=== PATIENT | male | born 1950 | race Caucasian/White ===

== ENCOUNTER 2016-09-18 10:43 | Day surgery (SDC) | END 2016-09-18 15:58 | disposition home or self-care (01) | DX: I12.0 Hypertensive chronic kidney disease with stage 5 chronic kidney disease or end stage renal disease (principal); N18.6 End stage renal disease ==

== ENCOUNTER 2016-12-23 08:48 | Day surgery (SDC) | payer OTHER ==
[~2016-12-23] VITALS: Ht 160 cm; Wt 60.3 kg
[2016-12-23] VITALS (12 sets, daily range): BP systolic 100–151; BP diastolic 47–70; PULSE 62–72; RESP 12–19; Ht 160 cm; Wt 60.3 kg
[~2016-12-23 08:48] MED LIST: AMLO-145 PO; ASPI81TA3 PO; CEFAZOLIN 2 GM/50 ML (PMX) 50 ML IVPB ONE; FURO40TA4 PO; HYDR-3672 PO; INSULIN; METO25TA7 PO; NPH,100V10 SQ; PROPOFOL 1000 MG INJ ONE
[2016-12-23] MEDS ORDERED: FER325 PO (09:45)
[2016-12-23] MEDS ORDERED: FURO40TA4 PO (09:46)
[2016-12-23] MEDS ORDERED: ATOR10TA65 PO (09:47)
[2016-12-23] MEDS ORDERED: CALC667C PO (09:47)
[2016-12-23] MEDS ORDERED: NPH,100V SQ (09:52)
[2016-12-23 10:04] LABS: ADD SCAN DIFF NO
[2016-12-23 10:10] LABS: BASOPHIL # 0.1 10^3/ul (0.0-0.1); BASOPHILS % 0.7 % (0.0-2.0); EOSINOPHILS # 0.1 10^3/ul (0.0-0.5); EOSINOPHILS % 1.2 % (0.0-7.0); HEMATOCRIT 29.8 % (42.0-52.0); HEMOGLOBIN 9.8 g/dl (14.0-18.0); LYMPHOCYTES # 1.8 10^3/ul (0.8-2.9); LYMPHOCYTES % 19.4 % (15.0-51.0); MEAN CORPUSCULAR HEMOGLOBIN 29.7 pg (29.0-33.0); MEAN CORPUSCULAR HGB CONC 32.9 g/dl (32.0-37.0); MEAN CORPUSCULAR VOLUME 90.3 fl (82.0-101.0); MEAN PLATELET VOLUME 9.9 fl (7.4-10.4); MONOCYTE # 0.8 10^3/ul (0.3-0.9); MONOCYTES % 8.9 % (0.0-11.0); NEUTROPHIL # 6.4 10^3/ul (1.6-7.5); NEUTROPHILS % 69.7 % (39.0-77.0); PLATELET COUNT 244 10^3/UL (140-415); RED CELL DISTRIBUTION WIDTH 13.6 % (11.5-14.5); WHITE BLOOD COUNT 9.2 10^3/ul (4.8-10.8)
[2016-12-23] MEDS ORDERED: GELATIN SIZE 100 SPONGE ONE (10:15)
[2016-12-23] MEDS ORDERED: LIDOCAINE 1% (STERILE-PAK) 30 ML INJ ONE (10:15)
[2016-12-23] MEDS ORDERED: THROMBIN 5000 UNIT VIAL ONE (10:16)
[2016-12-23] MEDS ORDERED: HEPARIN 1000 UNITS/ML 10 ML INJ ONE (10:16)
[2016-12-23 10:36] LABS: INR 0.99; PARTIAL THROMBOPLASTIN TIME 26.5 Sec (25.0-35.0); PROTIME 13.1 Sec (12.2-14.2)
--- NOTE | 2016-12-23 10:42 | HPN ---
Date/Time of Note Date/Time of Note DATE: 12/23/16 TIME: 10:42 Interval H&P Admission Note Pt. seen H&P reviewed: No system changes SHAWN BASURTO MD Dec 23, 2016 10:42
[2016-12-23 10:48] LABS: CREATININE 5.35 mg/dl (0.61-1.24)
[2016-12-23 10:49] LABS: CALCIUM 9.2 mg/dl (8.4-10.2)
[2016-12-23] MEDS ORDERED: MIDAZOLAM 1 MG/ML 2 ML INJ ONE (11:13)
[2016-12-23] MEDS ORDERED: FENTAnyl 50 MCG/ML VIAL ONE (11:13)
[2016-12-23] MEDS ORDERED: ROPIVACAINE 0.5 % 30 ML VIAL ONE (11:13)
[2016-12-23] MEDS ORDERED: CEFAZOLIN 1 GM INJ ONE (11:15)
[2016-12-23] MEDS ORDERED: PHENYLephrine (100 MCG/ML) 5ML SYG ONE (12:16)
[2016-12-23] MEDS ORDERED: ONDANSETRON 4 MG INJ ONE (12:18)
[2016-12-23] MEDS ORDERED: METOCLOPRAMIDE 10 MG INJ ONE (12:18)
--- NOTE | 2016-12-23 13:47 | PDOCDIS ---
Discharge Instructions DIAGNOSIS Discharge Diagnosis: ESRD CONDITION Patient Condition: Good HOME CARE INSTRUCTIONS: Special Diet: RENAL DIET ACTIVITY: Activity Restrictions: Slowly Increase Activity Rest between Activity Avoid heavy lifting Do not Drive Do not operate Machinery Do not operate Power Tool Avoid Heavy Housework Activity Restrictions Comment: MAY SHOWER IN TWO DAYS FOLLOW UP/APPOINTMENTS Appointments FOLLOWUP WITH SHERINE IN TWO WEEKS AT [facility] MAY REMOVE DRESSING IN TWO DAYS AND SHOWER, NO BATHING OR SWIMMING KEEP ARM SLING ON FOR 8-10HRS - PATIENT RECEIVED ARM BLOCK AND WILL REQUIRE SUPPORT. ONCE HE HAS SENSATION AND MOTOR OF THE FINGERTIPS THEN CAN REMOVE THE SLING HSAWN BASURTO MD Dec 23, 2016 13:47
[2016-12-23] MEDS ORDERED: ONDANSETRON 4 MG INJ IV PRN (14:00)
[2016-12-23] MEDS ORDERED: EPHEDrine SULFATE 50 MG/5 ML SYG IV PRN (14:00)
[2016-12-23] MEDS ORDERED: hydrALAzine 20 MG INJ IV PRN (14:00)
[2016-12-23] MEDS ORDERED: LABETALOL HCL 20MG INJ IV PRN (14:00)
[2016-12-23] MEDS ORDERED: METOCLOPRAMIDE 10 MG INJ IV PRN (14:00)
[2016-12-23] MEDS ORDERED: MEPERIDINE 25 MG INJ IV PRN (14:00)
[2016-12-23] MEDS ORDERED: ALBUMIN HUMAN 5% 250 ML IV PRN (14:00)
[2016-12-23] MEDS ORDERED: morphine (1 MG/ML) 10ML SYRINGE IV PRN ×2 (14:00)
[2016-12-23] MEDS ORDERED: DIPHENHYDRAMINE 50 MG INJ IV PRN (14:00)
--- NOTE | 2016-12-23 14:00 | OPR ---
Date/Time of Note Date/Time of Note DATE: 12/23/16 TIME: 13:51 Operative Report Free Text/Dictation DATE OF OPERATION: 12/23/2016 SURGEON: Kody Basurto MD PREOPERATIVE DIAGNOSIS: ESRD POSTOPERATIVE DIAGNOSIS: SAME PROCEDURE: 1. Creation of a right arm brachiocephalic arteriovenous fistula. 2. Ligation of right radiocephalic fistula (modifier 22 the fistula had a lot of scar tissue around it and needed careful dissection - 15 minutes) 3. Exploration of right forearm cephalic vein ANESTHESIA: Regional Block and Local COMPLICATIONS: None. ESTIMATED BLOOD LOSS: Minimal. TRANSFUSIONS: None SPECIMEN: None. INDICATIONS: This is a 66-year-old male with a history of end-stage renal artery disease. The risks and benefits of the procedure were discussed with the patient and not limited to , NC, pneumonia, stroke, infection, thrombosis of graft and arteriovenous fistula, nerve injury, limb loss, revisions of AVF, steal and she elected to undergo surgical intervention. DESCRIPTION: The patient was placed in supine position on the operating room table. The arms were placed at 80 degrees. The normal bony prominences were padded. The anesthesia team had placed the appropriate lines and anesthesia was induced. Time out performed and the appropriate site was marked and confirmed. The patient's upper extremity prepped and draped in the usual standard sterile fashion. Preoperative antibiotics were administered prior to the skin incision since the patient already had been on antibiotics. A 6 cm transverse skin incision was then performed below the antecubital fossa. The cephalic vein was identified and dissected for a segment of nearly 5 cm. Dissection was then carried as distally as possible through that incision. Attention was then directed to the brachial artery. The tendinous aponeurosis of the biceps muscle was then incised. Location of the brachial artery was then identified by palpation. The soft tissue over the brachial artery was then incised, and the brachial artery was then confirmed. At this point 1.5cm incision was made senior physical therapist previous radiocephalic fistula. With sharp scissors we dissected the area of the anastomosis and the fistula was ligated. This was a difficult dissection as we had to identify the vein among previous granulation tissue. Once that was completed the radial pulse was checked, it was adequate and biphasic. At this point the cephalic vein in the forearm was identified further with ultrasound and through the same antecubital skin incision was investigated and was not amenable for fistula creation. there was thickening. The patient was given 2500 units of heparin intravenously. The cephalic vein was then ligated at its most distal end in the supra antecubital segment. Yasargil clamps were then applied on the brachial artery, and a 6 mm incision in the anterior wall of the brachial artery was then performed. The cephalic vein was then gently curved and allowed to lay over the arteriotomy. The end of the vein was spatulated to match the side of the arteriotomy. The anastomosis was then performed using a running 6-0 Prolene suture. At the completion of the suture line the brachial artery was forward-flushed and then allowed to backbleed. The cephalic vein was also allowed to backbleed. The anastomosis was irrigated with heparinized saline solution. The suture was then tied and the suture line evaluated for hemostasis, which was adequate. There was evidence of excellent thrill in the cephalic vein. There was a strong pulse palpable in the brachial, radial, and ulnar arteries at the wrist. There was no evidence of any kinks. The subcutaneous tissue was then closed with a 3-0 Vicryl running suture and the skin closed with caitlin. Wrist incision we placed dermabond. There was evidence of excellent thrill in the cephalic vein after the wound closure. The patient tolerated the procedure well , was taken to the postanesthesia care unit in stable condition. All instruments , catheters, sponge, and needles were corrected x2. KODY BASURTO MD Dec 23, 2016 13:59
== END 2016-12-23 15:12 | disposition home or self-care (01) ==
LOC: SDS 08:48
PROVIDERS: ATTEND Student in an Organized Health Care Education/Training Program
DX: I12.0 Hypertensive chronic kidney disease with stage 5 chronic kidney disease or end stage renal disease (principal); N18.6 End stage renal disease; E11.22 Type 2 diabetes mellitus with diabetic chronic kidney disease; Z99.2 Dependence on renal dialysis; E78.5 Hyperlipidemia, unspecified; I69.359 Hemiplegia and hemiparesis following cerebral infarction affecting unspecified side
CPT/HCPCS: 36821; 37607; 80048; 82962; 85025; 85610; 85730; J0690; J1644; J2250; J2405; J2765; J2795; J3010; Z7512; Z7610; J2370

== ENCOUNTER 2017-08-16 10:46 | Day surgery (SDC) | END 2017-08-16 16:30 | disposition home or self-care (01) ==